=== PATIENT | female | born 1995 | race Caucasian/White ===

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

== ENCOUNTER 2017-06-19 08:53 | Emergency (ER) | payer BC, OTHER ==
--- NOTE | 2017-06-19 09:25 | UC ---
Abdominal Pain Female HPI - HPI Summary HPI Summary: 22 year old female with no significant pmhx here with lower abdominal pain and urinary frequency for two weeks. Abdominal pain is described as achy and sharp with no radiation to the back. NO flank stone. no dysuria, hematuria, n/v/d or any other complaints. - History of Current Complaint Chief Complaint: UCGeneralIllness Stated Complaint: BACK PAIN ABD PAIN HEAD CONGESTION Time Seen by Provider: 06/19/17 09:11 Hx Obtained From: Patient Hx Last Menstrual Period: Explanon Onset/Duration: Gradual Onset Character: Aching, Sharp Aggravating Factor(s): Nothing Alleviating Factor(s): Nothing Associated Signs and Symptoms: Positive: Back Pain Allergies/Adverse Reactions: Allergies Allergy/AdvReac Type Severity Reaction Status Date / Time Amoxicillin Allergy Intermediate Hives Verified 06/19/17 09:03 PMH/Surg Hx/FS Hx/Imm Hx - Surgical History Surgical History: Yes Surgery Procedure, Year, and Place: tonsilectomy at age 10. adenoidectomy - Family History Known Family History: Positive: Respiratory Disease - asthma, Other - denies [facility] of shoulder injury. - Social History Alcohol Use: None Substance Use Type: None Smoking Status (MU): Never Smoked Tobacco - Immunization History Most Recent Influenza Vaccination: Not UTD Vaccination Up to Date: Yes Review of Systems Constitutional: Negative Skin: Negative Eyes: Negative ENT: Negative Respiratory: Negative Cardiovascular: Negative Gastrointestinal: Negative, Abdominal Pain Genitourinary: Negative, Frequency Motor: Negative Neurovascular: Negative Musculoskeletal: Negative Neurological: Negative Psychological: Negative All Other Systems Reviewed And Are Negative: Yes Physical Exam Triage Information Reviewed: Yes Appearance: Well-Appearing, No Pain Distress, Well-Nourished Vital Signs: Initial Vital Signs Temp 36.5 C 06/19/17 08:58 Pulse 141 06/19/17 08:58 Resp 18 06/19/17 08:58 BP 112/85 06/19/17 08:58 Pulse Ox 100 06/19/17 08:58 Eye Exam: Normal Respiratory: Positive: Chest non-tender, Lungs clear, Normal breath sounds, No respiratory distress Cardiovascular: Positive: RRR - Tachy, No Murmur Abdomen Description: Positive: Nontender, No Organomegaly, Soft, Other: - No CVAT Skin Exam: Normal Abd Pain Female Course/Dx - Course Course Of Treatment: Signs and symptoms c/w UTI. However patient is tachy, afebrile and appears hypovolemic. UA here positive for leuk and nitrites. If tachycardia does not resovle with po intake, will give IVF and dc with follow up. IVF given and hr improved. I offered STD to patient, she refuses. She is sexually active, unprotected sex with on partner. - Differential Dx/Diagnosis Differential Diagnosis: Urinary Tract Infection Provider Diagnoses: UTI Discharge - Discharge Plan Condition: Good Disposition: HOME Prescriptions: Nitrofurantoin Monohyd Macro [Macrobid] 100 mg PO BID #20 cap Patient Education Materials: Urinary Tract Infection in Women (ED) Forms: *School Release Referrals: Shweta BEARD,Vaughn [Primary Care Provider] - Additional Instructions: Follow up with your [facility] letter [facility] doctor after one week.
[2017-06-19] MEDS ORDERED: NS 0.9% 1000 ML* 1,000 ML IV SCH (09:45)
[2017-06-19] MEDS ORDERED: Nitrofurantoin Macrocrystals* 50 MG CAP PO ONE (10:47)
[2017-06-19 11:14] VITALS: BP 124/79
== END 2017-06-19 11:19 | disposition home or self-care (01) ==
LOC: UCEAST 08:53
DX: N39.0 Urinary tract infection, site not specified (principal); Z32.02 Encounter for pregnancy test, result negative
CPT/HCPCS: 81003; 84702; 87086; 93005; 99212; A9270-GY; G0463

== ENCOUNTER 2017-09-21 14:58 | Emergency (ER) | payer BC ==
[2017-09-21 16:46] VITALS: BP 133/78
--- NOTE | 2017-09-21 16:59 | UC ---
Respiratory Complaint HPI - HPI Summary HPI Summary: Pt c/o cough, SOB, wheezing, chest congestion. Pt has taken , antihistamines, decongestants with no improvement. Pt has history of pneumonia and is worried she has pneumonia. - History of Current Complaint Hx Obtained From: Patient Hx Last Menstrual Period: 09/17/17 ?: No Onset/Duration: Gradual Onset, Lasting Days - 7 Timing: Constant Severity Initially: Mild Severity Currently: Moderate Pain Intensity: 7 Character: Cough: Nonproductive Aggravating Factors: Exertion, Deep Breaths, Recumbent Position Alleviating Factors: Nothing Associated Signs And Symptoms: Positive: Wheezing, URI, Nasal Congestion Related History: Seasonal Allergies - Risk Factors Pulmonary Embolism Risk Factors: Negative Cardiac Risk Factors: Negative Pseudomonas Risk Factors: Negative Tuberculosis Risk Factors: Negative <Sofia Langford NP - Last Filed: 09/21/17 17:48> <Pati Leavitt - Last Filed: 09/21/17 17:57> - History of Current Complaint Chief Complaint: UCRespiratory Stated Complaint: COUGH, CONGESTION Time Seen by Provider: 09/21/17 16:43 - Allergies/Home Medications Allergies/Adverse Reactions: Allergies Allergy/AdvReac Type Severity Reaction Status Date / Time amoxicillin Allergy Hives Verified 09/21/17 16:46 PMH/Surg Hx/FS Hx/Imm Hx Previously Healthy: Yes Respiratory History: Asthma - Surgical History Surgical History: Yes Surgery Procedure, Year, and Place: tonsilectomy at age 10. adenoidectomy - Family History Known Family History: Positive: Respiratory Disease - asthma, Other - denies [facility] of shoulder injury. - Social History Occupation: Student Lives: Dormitory/Roommates Alcohol Use: None Substance Use Type: None Smoking Status (MU): Never Smoked Tobacco Have You Smoked in the Last Year: No - Immunization History Most Recent Influenza Vaccination: Not UTD Vaccination Up to Date: Yes <Sofia Langford NP - Last Filed: 09/21/17 17:48> Review of Systems Constitutional: Chills, Fatigue Skin: Negative Eyes: Negative ENT: Sinus Congestion Respiratory: Cough Cardiovascular: Negative Gastrointestinal: Negative Genitourinary: Negative Motor: Negative Neurovascular: Negative Musculoskeletal: Negative Neurological: Negative Psychological: Negative Is Patient Immunocompromised?: No All Other Systems Reviewed And Are Negative: Yes <Sofia Langford NP - Last Filed: 09/21/17 17:48> Physical Exam Triage Information Reviewed: Yes Appearance: Well-Appearing Vital Signs: Initial Vital Signs Temp 99.3 F 09/21/17 16:44 Pulse 97 09/21/17 16:44 Resp 18 09/21/17 16:44 BP 133/78 09/21/17 16:44 Pulse Ox 98 09/21/17 16:44 Vital Signs Reviewed: Yes Eye Exam: Normal ENT Exam: Other ENT: Positive: Nasal congestion Dental Exam: Normal Neck exam: Normal Respiratory Exam: Other Respiratory: Positive: Wheezing Cardiovascular Exam: Normal Musculoskeletal Exam: Normal Neurological Exam: Normal Psychological Exam: Normal Skin Exam: Normal <Sofia Langford NP - Last Filed: 09/21/17 17:48> Vital Signs: Initial Vital Signs Temp 99.3 F 09/21/17 16:44 Pulse 97 09/21/17 16:44 Resp 18 09/21/17 16:44 BP 133/78 09/21/17 16:44 Pulse Ox 98 09/21/17 16:44 <Pati Leavitt - Last Filed: 09/21/17 17:57> UC Diagnostic Evaluation - Laboratory O2 Sat by Pulse Oximetry: 98 Diagnostic Studies Comment: xray: IMPRESSION: NO ACTIVE CARDIOPULMONARY DISEASE IS NOTED. - Radiology Radiology Interpretation Completed By: Radiologist <Sofia Langford NP - Last Filed: 09/21/17 17:48> Respiratory Course/Dx - Differential Dx/Diagnosis Differential Diagnosis/HQI/PQRI: Asthma, Bronchitis, Other - uri pneumonia Provider Diagnoses: bronchitis. wheezing <Sofia Langford NP - Last Filed: 09/21/17 17:48> Discharge <Sofia Langford NP - Last Filed: 09/21/17 17:48> <Pati Leavitt - Last Filed: 09/21/17 17:57> - Discharge Plan Condition: Stable Disposition: HOME Prescriptions: Albuterol HFA INHALER* [Ventolin HFA Inhaler*] 1 - 2 puff INH Q6H PRN #1 mdi PRN Reason: Sob/Wheezing Azithromycin TAB* [Zithromax TAB (Z-SUBHA) 250 mg #6 tabs] 2 tab PO .TODAY, THEN 1 DAILY #1 subha predniSONE TAB* [Deltasone TAB*] 20 mg PO DAILY #4 tab Patient Education Materials: Acute Bronchitis (ED) Forms: *Gen. Provider Communication Referrals: [facility] [Outside] No Primary Care Phys,NOPCP [Primary Care Provider] - Attestation Statement User Type: Provider - I was available for consult. This patient was seen by the FELICE. The patient was not presented to, seen by, or examined by me. Bernard <Pati Leavitt - Last Filed: 09/21/17 17:57>
--- NOTE | 2017-09-21 17:25 | RAD ---
Indication: Cough, shortness of breath. 2 views of the chest are reviewed. No prior study is available for comparison. No mediastinal shift is noted. Heart is of normal size and configuration. Lung kraft demonstrate no pleural fluid, pneumonia or pneumothorax. IMPRESSION: NO ACTIVE CARDIOPULMONARY DISEASE IS NOTED.
== END 2017-09-21 17:46 | disposition home or self-care (01) ==
LOC: UCCORT 14:58
DX: J40 Bronchitis, not specified as acute or chronic (principal); R06.2 Wheezing; Z88.0 Allergy status to penicillin
CPT/HCPCS: 71046; 99212; G0463

== ENCOUNTER 2019-05-18 14:34 | Emergency (ER) | payer BC ==
[2019-05-18 15:11] VITALS: BP 126/80
--- NOTE | 2019-05-18 16:00 | UC ---
General HPI - HPI Summary HPI Summary: 24 yo with unplanned but presently plans to proceed with it, recalls last LMP in February and is uncertain about March. Had serum HCG done 2 days ago and was advised that based on HCG, her is between 5 and 8 weeks. Began vomiting on 05/14, after all ingestion. Voiding well, every few hours, without dysuria. Has low abdominal cramping. Reports 3 years of chronic diarrhea being evaluated by GI in [place]. Currently taking a vitamin. - History of Current Complaint Chief Complaint: UCGI Stated Complaint: NAUSEA, VOMITING Time Seen by Provider: 05/18/19 15:58 Hx Obtained From: Patient Hx Last Menstrual Period: Mar 2019 Onset/Duration: Sudden Onset, Lasting Days - 5 Onset Severity: Moderate Current Severity: Moderate Pain Intensity: 3 Associated Signs & Symptoms: Positive: Nausea, Vomiting. Negative: Headache - Allergy/Home Medications Allergies/Adverse Reactions: Allergies Allergy/AdvReac Type Severity Reaction Status Date / Time amoxicillin Allergy Hives Verified 05/18/19 15:11 Home Medications: Home Medications Antibiotic For Sinus Infection PO BID 05/18/19 [History] PMH/Surg Hx/FS Hx/Imm Hx Previously Healthy: Yes - Surgical History Surgical History: Yes Surgery Procedure, Year, and Place: T&A age 10 - Family History Known Family History: Positive: Cardiac Disease - mother, Respiratory Disease - asthma, Other - Mother has Factor V Leiden mutation. - Social History Occupation: Employed Full-time Lives: With Family Alcohol Use: None Substance Use Type: None Smoking Status (MU): Never Smoked Tobacco Have You Smoked in the Last Year: No - Immunization History Most Recent Influenza Vaccination: Not UTD Vaccination Up to Date: Yes Review of Systems All Other Systems Reviewed And Are Negative: Yes Constitutional: Positive: Negative Skin: Positive: Negative Eyes: Positive: Negative ENT: Positive: Negative Gastrointestinal: Positive: Vomiting, Nausea, Other - low abdominal cramping. Genitourinary: Positive: Negative Motor: Positive: Negative Neurovascular: Positive: Negative Musculoskeletal: Positive: Negative Neurological: Positive: Negative Psychological: Positive: Negative Is Patient Immunocompromised?: No Physical Exam Triage Information Reviewed: Yes Appearance: Well-Appearing, No Pain Distress Vital Signs: Initial Vital Signs Temp 98.1 F 05/18/19 15:06 Pulse 94 05/18/19 15:06 Resp 16 05/18/19 15:06 BP 126/80 10/30/19 15:06 Pulse Ox 100 05/18/19 15:06 ENT: Positive: Pharynx normal Neck: Positive: Supple, Nontender, No Lymphadenopathy Respiratory: Positive: Lungs clear, Normal breath sounds Cardiovascular: Positive: RRR, No Murmur Abdomen Description: Positive: Nontender, No Organomegaly, Soft Musculoskeletal Exam: Normal Neurological Exam: Normal Psychological Exam: Normal Skin Exam: Normal Course/Dx - Course Course Of Treatment: reviewed and will tx Diclectin. Aware that if insurance does not cover it, can begin pyridoxine 10mg daily and can call for an rx for meclizine 25mg up to 3x daily. Will refer to OBGYN for care. - Diagnoses Provider Diagnosis: Nausea and vomiting during prior to 22 weeks gestation Discharge ED - Sign-Out/Discharge Documenting (check all that apply): Patient Departure All imaging exams completed and their final reports reviewed: No Studies - Discharge Plan Condition: Good Disposition: HOME Prescriptions: Doxylamine/Pyridoxine(NF) [Diclegis (NF)] 2 tab PO BEDTIME #40 tab Patient Education Materials: Hyperemesis Gravidarum (ED) Referrals: Trina Montaño [Primary Care Provider] - Additional Instructions: Ensure that you separate liquid from fluid intake--eat your solids separate from your liquids. Use nutritious fluids such as soup broths and fruit smoothies. You have been prescribed diclectin, beginning with 2 tablets at bedtime for the first 2 days. If symptoms persist, increase to one tablet in the morning and 2 tablets at night on day 3. You have a referral to OBGYN for care. Continue your vitiamin. If the Diclectin is not covered, you can begin over the counter pyridoxine 10mg daily and call here for a prescription for meclizine for treatment (25mg three times daily as needed.). - Billing Disposition and Condition Condition: GOOD Disposition: Home
== END 2019-05-18 16:45 | disposition home or self-care (01) ==
LOC: UCEAST 14:34
DX: O21.2 Late vomiting of pregnancy (principal); Z3A.22 22 weeks gestation of pregnancy; Z88.0 Allergy status to penicillin
CPT/HCPCS: 99212; G0463

== ENCOUNTER 2022-09-18 08:17 | Inpatient (IN) ==
[2022-09-18] MEDS ORDERED: Lactated Ringers 1000 ml BAG 1,000 ML IV ONE (09:03)
[2022-09-18] MEDS ORDERED: Buffered Lidocaine 1% SYRIN 1 ml INTRADERM ONE (09:03)
[2022-09-18] MEDS ORDERED: Promethazine INJ(RESTRICTED) 25 MG/ML 1 ml VIAL IV PRN (09:03)
[2022-09-18] MEDS ORDERED: Nalbuphine 10 MG/ML 1 ML VIAL IV PRN (09:03)
[2022-09-18] MEDS ORDERED: Dinoprostone 10 MG VAG.SUPP VAGINAL ONE (09:11)
[2022-09-18 09:38] LABS: ABS Eosinophils 0.1 10^3/ul (0-0.6); ABS Lymphocytes 1.6 10^3/ul (1.0-4.8); ABS Monocytes 0.8 10^3/ul (0-0.8); ABS Neutrophils 7.7 10^3/ul (1.5-7.7); Eosinophil % 0.8 %; Hematocrit 30 % (35-47); Hemoglobin 9.8 g/dL (12.0-16.0); Lymphocyte % 15.9 %; Mean Corpuscular HGB Conc 33 g/dL (31-36); Mean Corpuscular Hemoglobin 27 pg (27-31); Mean Corpuscular Volume 84 fL (80-97); Mean Platelet Volume 9.3 fL (7.4-10.4); Nucleated Red Blood Cells % 0.1; Platelet Count 229 10^3/uL (150-450); Red Blood Count 3.59 10^6 /uL (3.70-4.87); Red Cell Distribution Width 18 % (10-15); White Blood Count 10.2 10^3/uL (3.5-10.8)
[2022-09-18 09:42] LABS: Urine Appearance Cloudy; Urine Bilirubin Negative (Negative); Urine Blood Negative (Negative); Urine Color Yellow; Urine Glucose Negative (Negative); Urine Ketones Negative (Negative); Urine Nitrite Negative (Negative); Urine Protein Negative (Negative); Urine Specific Gravity 1.017 (1.002-1.030); Urine Urobilinogen Negative (Negative)
[2022-09-18 09:51] LABS: Urine Benzodiazepine Screen None Detected (None Detect); Urine Cannabinoids Screen Presumptive Positive (None Detect); Urine Opiates Screen None Detected (None Detect)
[2022-09-18 10:21] LABS: Albumin 3.2 g/dL (3.2-5.2); Albumin/Globulin Ratio 1.5 (1-3); Calcium 8.4 mg/dL (8.6-10.3); Creatinine, Serum 0.33 mg/dL (0.51-0.95); Globulin 2.2 g/dL (2-4); Potassium 3.7 mmol/L (3.5-5.0); Total Bilirubin 0.2 mg/dL (0.2-1.0); Total Protein 5.4 g/dL (6.4-8.9); eGFR CKD-EPI 147.5 (>60)
[2022-09-19] MEDS: Oxytocin in LR 20,000 MILLI.UNIT/1,000 ML BAG IV SCH (09:25)
[2022-09-19] MEDS: Lactated Ringers 1000 ml BAG 1,000 ML IV SCH ×2 (09:57→14:40)
[2022-09-19] MEDS ORDERED: Lidocaine 1.5% EPI 1:200,000 30 ML SDV ONE (13:56)
[2022-09-19] MEDS: OBEPIDURAL (200 ML) 200 ML EPIDURAL ONE (14:40)
[2022-09-19] MEDS ORDERED: Lactated Ringers 1000 ml BAG 500 ML IV PRN ×2 (14:41)
[2022-09-19] MEDS ORDERED: Sodium Citrate/Citric Acid LIQ 15 ML UDC PO PRN (14:41)
[2022-09-19] MEDS ORDERED: Phenylephrine 40 mcg/mL 10mL (400mcg) SYRINGE IV PUSH PRN ×2 (14:41)
[2022-09-19] MEDS ORDERED: Lactated Ringers 1000 ml BAG 1,000 ML IV ONE (14:41)
[2022-09-19] MEDS ORDERED: OBEPIDURAL (200 ML) 200 ML EPIDURAL SCH (15:00)
[2022-09-19] MEDS ORDERED: Lactated Ringers 1000 ml BAG 1,000 ML IV SCH ×2 (15:00)
[2022-09-19 15:39] LABS: Urine Appearance Clear; Urine Bilirubin Negative (Negative); Urine Blood 2+ (Negative); Urine Color Straw; Urine Glucose Negative (Negative); Urine Ketones 1+ (Negative); Urine Nitrite Negative (Negative); Urine Protein Negative (Negative); Urine Specific Gravity 1.005 (1.002-1.030); Urine Urobilinogen Negative (Negative)
[2022-09-19 15:47] LABS: Urine Bacteria Absent (Absent); Urine Red Blood Cell 2+(6-10/hpf) (Absent); Urine Squamous Epithelial Cell Present (Absent); Urine White Blood Cell Absent (Absent)
[2022-09-19] MEDS ORDERED: fentaNYL 100 mcg/2 ml 50 MCG/ML VIAL ONE (21:29)
[2022-09-20] MEDS ORDERED: Lidocaine 1.5% EPI 1:200,000 30 ML SDV ONE (00:32)
[2022-09-20] MEDS: Oxytocin in LR 20,000 MILLI.UNIT/1,000 ML BAG IV SCH (02:31)
[2022-09-20] MEDS: OBEPIDURAL (200 ML) 200 ML EPIDURAL ONE (04:12)
[2022-09-20] MEDS ORDERED: fentaNYL 100 mcg/2 ml 50 MCG/ML VIAL ONE (06:49)
[2022-09-20] MEDS ORDERED: Oxytocin in LR 20,000 MILLI.UNIT/1,000 ML BAG IV SCH (12:15)
[2022-09-20] MEDS ORDERED: Glycerin ADULT 2.4 gm SUPP PR PRN (12:15)
[2022-09-20] MEDS: Witch Hazel PAD JAR TOPICAL PRN (12:39)
[2022-09-20] MEDS: Dibucaine 1% OINT 28.35 GM TUBE PR PRN (12:39)
[2022-09-20] MEDS ORDERED: Lidocaine 1% VIAL 10 MG/ML VIAL 30 ML ONE (12:52)
[2022-09-20] MEDS ORDERED: Lactated Ringers 1000 ml BAG 1,000 ML IV SCH (13:00)
[2022-09-21 08:08] LABS: ABS Lymphocytes 1.6 10^3/ul (1.0-4.8); Eosinophil % 0.2 %; Hematocrit 29 % (35-47); Hemoglobin 9.3 g/dL (12.0-16.0); Lymphocyte % 11.1 %; Mean Corpuscular HGB Conc 32 g/dL (31-36); Mean Corpuscular Hemoglobin 27 pg (27-31); Mean Corpuscular Volume 84 fL (80-97); Mean Platelet Volume 9.4 fL (7.4-10.4); Platelet Count 274 10^3/uL (150-450); Red Blood Count 3.49 10^6 /uL (3.70-4.87); Red Cell Distribution Width 19 % (10-15); White Blood Count 14.7 10^3/uL (3.5-10.8)
[2022-09-21] MEDS ORDERED: Varicella Virus Vaccine Live 0.5 ML VIAL SUBCUT ONE (09:00)
[2022-09-22] MEDS: Dibucaine 1% OINT 28.35 GM TUBE PR PRN (08:08)
[2022-09-22] MEDS: Witch Hazel PAD JAR TOPICAL PRN (08:08)
[2022-09-22 08:14] VITALS: BP 122/76
== END 2022-09-22 12:20 | disposition home or self-care (01) | DRG 560 ==
LOC: MCHOBOUT 08:17 → MCHOB 09:01
PROVIDERS: ADMIT Obstetrics & Gynecology; ATTEND Obstetrics & Gynecology

== ENCOUNTER 2024-02-24 12:35 | Inpatient (IN) ==
[2024-02-24] MEDS ORDERED: Lidocaine 1% VIAL 10 MG/ML 30 ML VIAL INJ PRN (15:10)
[2024-02-24] MEDS: Lactated Ringers 1000 ml BAG 1,000 ML IV SCH (15:12)
[2024-02-24 15:46] LABS: ABS Lymphocytes 1.5 10^3/uL (1.0-4.8); ABS Monocytes 0.7 10^3/uL (0.0-0.9); ABS Neutrophils 4.8 10^3/uL (1.5-7.6); Eosinophil % 0.5 %; Hematocrit 32.4 % (35-45); Hemoglobin 10.5 g/dL (11.5-14.3); Lymphocyte % 21.5 %; Mean Corpuscular Hemoglobin 26.1 pg (27-33); Mean Corpuscular Hgb Conc 32.5 g/dL (31-36); Mean Corpuscular Volume 80.3 fL (80-97); Mean Platelet Volume 10.9 fL (7.5-11.2); Nucleated Red Blood Cells % 0.1 %/100WBC (0.0-0.8); Platelet Count 181 10^3/uL (150-450); Red Blood Count 4.04 10^6/uL (3.63-4.92); Red Cell Distribution Width 13.6 % (12-17); White Blood Count 7.1 10^3/uL (3.8-11.8)
[2024-02-24] MEDS: Oxytocin in LR 20,000 MILLI.UNIT/1,000 ML BAG IV SCH (15:56)
[2024-02-24 16:12] LABS: Urine Benzodiazepine Screen None Detected (None Detect); Urine Cannabinoids Screen Presumptive Positive (None Detect); Urine Opiates Screen None Detected (None Detect)
[2024-02-24] MEDS: ceFAZolin 2 GM in NS PREMIX 2 GM/100 ML BAG IVPB ONE (16:34)
[2024-02-25] MEDS ORDERED: ceFAZolin VIAL 1 GM in NS 0.9% 50 ML 50 ML IVPB SCH
[2024-02-25] MEDS: ceFAZolin 1 GM Q8H (ADVAN) IVPB SCH (00:14)
[2024-02-25] MEDS: miSOPROStol 100 mcg TAB VAGINAL ONE (05:50)
[2024-02-25] MEDS: Lactated Ringers 1000 ml BAG 1,000 ML IV ONE (16:32)
[2024-02-25] MEDS: OBEPIDURAL (200 ML) 200 ML EPIDURAL ONE (16:55)
[2024-02-25] MEDS ORDERED: fentaNYL 100 mcg/2 ml 50 MCG/ML VIAL ONE (17:19)
[2024-02-25] MEDS ORDERED: Bupivacaine 0.25% w/EPI 10 ML SDV ONE (17:19)
[2024-02-25] MEDS: Ondansetron 4 mg VIAL 2 MG/ML 2 ml VIAL IV PRN (17:46)
[2024-02-25] MEDS ORDERED: Sodium Citrate/Citric Acid LIQ 15 ML UDC PO PRN (17:53)
[2024-02-25] MEDS ORDERED: Phenylephrine 40 mcg/mL 10mL (400mcg) SYRINGE IV PUSH PRN ×2 (17:53)
[2024-02-25 19:00] LABS: Urine Appearance Clear; Urine Bilirubin Negative (Negative); Urine Color Yellow; Urine Ketones 3+ (80mg/dL) (Negative)
[2024-02-25 19:01] LABS: Urine Nitrite Negative (Negative); Urine Protein Negative (Negative); Urine Urobilinogen 0.2 (Negative) (Negative); Urine pH 8.5 (5.0-8.0)
[2024-02-25 19:02] LABS: Urine Bacteria Absent /HPF (Absent); Urine Red Blood Cell 3+(>10/hpf) /HPF (0-Trace); Urine White Blood Cell Trace(0-5/hpf) /HPF (0-Trace)
[2024-02-25] MEDS ORDERED: Glycerin ADULT 2.4 gm SUPP PR PRN (22:22)
[2024-02-25] MEDS ORDERED: Lactated Ringers 1000 ml BAG 1,000 ML IV SCH (23:00)
[2024-02-26 08:20] LABS: ABS Basophils 0.1 10^3/uL (0.0-0.1); ABS Lymphocytes 1.4 10^3/uL (1.0-4.8); ABS Monocytes 0.7 10^3/uL (0.0-0.9); ABS Neutrophils 7.1 10^3/uL (1.5-7.6); Eosinophil % 0.4 %; Hemoglobin 9.5 g/dL (11.5-14.3); Lymphocyte % 15.3 %; Mean Corpuscular Hemoglobin 26.5 pg (27-33); Mean Corpuscular Hgb Conc 32.7 g/dL (31-36); Mean Platelet Volume 10.5 fL (7.5-11.2); Platelet Count 144 10^3/uL (150-450); Red Blood Count 3.58 10^6/uL (3.63-4.92); Red Cell Distribution Width 13.7 % (12-17); White Blood Count 9.3 10^3/uL (3.8-11.8)
[2024-02-26] MEDS: Witch Hazel PAD JAR TOPICAL PRN (08:23)
[2024-02-26] MEDS: Dibucaine 1% OINT 28.35 GM TUBE PR PRN (08:24)
[2024-02-26] MEDS: Oxytocin in LR 20,000 MILLI.UNIT/1,000 ML BAG IV SCH (19:19)
[2024-02-26] MEDS: Lactated Ringers 1000 ml BAG 1,000 ML IV SCH (19:19)
[2024-02-26] MEDS: Lidocaine/Epinephrin 1.5%/200 5 ML AMP INJ ONE (19:19)
[2024-02-26] MEDS: Phenylephrine 40 mcg/mL 10mL (400mcg) SYRINGE ONE (19:19)
[2024-02-26] MEDS: Lactated Ringers 1000 ml BAG 1,000 ML IV ONE (19:19)
[2024-02-26] MEDS: Buffered Lidocaine 1% SYRIN 1 ml INTRADERM ONE (20:54)
[2024-02-26] MEDS: Penicillin G Potassium IV 5,000,000 UNITS in NS 0.9% 100 ml BAG 100 ML IVPB ONE (20:54)
[2024-02-26] MEDS: OBEPIDURAL (200 ML) 200 ML EPIDURAL SCH (20:55)
[2024-02-26 21:38] LABS: Syphilis IgG Screen Nonreactive
[2024-02-27 08:00] VITALS: BP 121/81
[2024-02-27] MEDS: Varicella Virus Vaccine Live 0.5 ML VIAL SUBCUT ONE (10:23)
[2024-02-27] MEDS: Measles, Mumps,Rubella VACC 0.5 ML/VIAL SUBCUT ONE (10:24)
== END 2024-02-27 12:15 | disposition home or self-care (01) | DRG 560 ==
LOC: MCHOBOUT 12:35 → MCHOB 13:23
PROVIDERS: ATTEND Advanced Practice Midwife